=== PATIENT | female | born 1995 | race Caucasian/White ===

== ENCOUNTER 2020-07-10 03:59 | Emergency (ER) | payer MEDICAID, OTHER ==
[~2020-07-10] VITALS: Ht 154.9 cm; Wt 63.6 kg
[~2020-07-10 03:59] MED LIST: FLUT16SP2 NS; IBUP-1984 PO; ONDA4TAB6 PO
[2020-07-10 04:03] VITALS: BP 125/59
[2020-07-10] MEDS ORDERED: TETanus/Pertussis (Acell)/Diphther VAC/PF (Tdap-Adult) 0.5ml syringe IMVAC ONE (04:25)
== END 2020-07-10 04:45 ==
LOC: ER 03:59
DX: S80.212A Abrasion, left knee, initial encounter (principal); M25.562 Pain in left knee; F10.129 Alcohol abuse with intoxication, unspecified; F12.90 Cannabis use, unspecified, uncomplicated; F17.200 Nicotine dependence, unspecified, uncomplicated; Z79.899 Other long term (current) drug therapy; V47.0XXA Car driver injured in collision with fixed or stationary object in nontraffic accident, initial encounter; W22.11XA Striking against or struck by driver side automobile airbag, initial encounter; Y93.89 Activity, other specified; Y92.89 Other specified places as the place of occurrence of the external cause; Y99.8 Other external cause status; Y90.9 Presence of alcohol in blood, level not specified
CPT/HCPCS: 90471; 90715; 99283